=== PATIENT | female | born 1980 | race Two or more races ===

== ENCOUNTER → 2020-11-09 | Outpatient (CLI) | payer BC ==
[~2020-11-09] MED LIST: ACET325T14 PO; LISI-170 PO; MULT-658 PO; norethindrone PO
[2020-11-09 16:38] LABS: ALANINE AMINOTRANSFERASE 34 U/L (12-78); ALBUMIN 3.8 g/dL (3.4-5.0); ANION GAP 7 mmol/L (5-15); CALCIUM 8.9 mg/dL (8.5-10.1); CHLORIDE 105 mmol/L (98-107)
[2020-11-09 16:40] LABS: ALKALINE PHOSPHATASE 77 U/L (45-117); BILIRUBIN,TOTAL 0.3 mg/dL (0.2-1.0); CREATININE 0.72 mg/dL (0.55-1.02); TOTAL PROTEIN 7.7 g/dL (6.4-8.2)
== END | disposition home or self-care (01) ==
LOC: STAR 15:20
PROVIDERS: ATTEND Obstetrics & Gynecology
DX: Z01.812 Encounter for preprocedural laboratory examination (principal); R10.30 Lower abdominal pain, unspecified; D21.9 Benign neoplasm of connective and other soft tissue, unspecified; Z20.822 Contact with and (suspected) exposure to COVID-19
CPT/HCPCS: 36415; 80053; U0003; U0005

== ENCOUNTER 2020-11-13 05:29 | Day surgery (SDC) | payer BC, OTHER ==
[~2020-11-13] VITALS: Ht 154.9 cm; Wt 88.0 kg
[2020-11-13] MEDS ORDERED: CHLORHEXIDINE 15 ML UDC PO ONE (06:15)
[2020-11-13 06:17] VITALS: BP 106/76
[2020-11-13] MEDS ORDERED: LIDOCAINE-MPF 1%, 2ML INFIL ONE (06:30)
[2020-11-13] MEDS ORDERED: LACTATED RINGERS 1,000 ML IV SCH (06:30)
[2020-11-13 06:43] LABS: HCG UR SG 1.022 (1.003-1.030)
[2020-11-13] MEDS ORDERED: FENTANYL PF 250 MCG/5ML ONE (06:58)
[2020-11-13] MEDS ORDERED: MIDAZOLAM 1 MG/ML, 2ML ONE (06:58)
[2020-11-13] MEDS ORDERED: FLUORESCEIN SODIUM 500 MG/5 ML ONE (07:03)
[2020-11-13] MEDS ORDERED: BUPIVACAINE/PF 0.25% ONE (07:03)
[2020-11-13] MEDS ORDERED: EPINEPHRINE 1 MG/ML, 1ML ONE (07:03)
[2020-11-13] MEDS ORDERED: CEFAZOLIN 1,000 MG ONE ×2 (07:27)
[2020-11-13] MEDS ORDERED: ACETAMINOPHEN 325 MG TABLET PO PRN (07:30)
[2020-11-13] MEDS ORDERED: LABETALOL 5MG/ML, 20ML IV PRN (07:30)
[2020-11-13] MEDS ORDERED: PROMETHAZINE 25 MG/ML, 1ML IVPush PRN (07:30)
[2020-11-13] MEDS ORDERED: HYDROmorphone 1 MG/ML, 1ML INJ IVPush PRN (07:30)
[2020-11-13] MEDS ORDERED: OXYcodone 5 MG/5 ML ORAL.SOL UDC PO PRN (07:30)
[2020-11-13] MEDS ORDERED: hydrALAzine 20 MG/ML, 1ML IV PRN (07:30)
[2020-11-13] MEDS ORDERED: MEPERIDINE/PF 25MG/0.5ML IVPush PRN (07:30)
[2020-11-13] MEDS ORDERED: ONDANSETRON 2MG/ML, 2ML IVPush PRN (07:30)
[2020-11-13] MEDS ORDERED: DEXAMETHASONE 4 MG/ML, 1ML ONE (07:36)
[2020-11-13] MEDS ORDERED: ROCURONIUM 10MG/ML,5ML ONE ×2 (07:51→09:06)
[2020-11-13] MEDS ORDERED: PROPOFOL 10 MG/ML, 20ML ONE (07:51)
[2020-11-13] MEDS ORDERED: EPHEDRINE 50 MG/ML, 1ML ONE (07:51)
[2020-11-13] MEDS ORDERED: BUPIVACAINE/PF-EPI 0.25% 1:200K INFIL ONE (08:25)
[2020-11-13] MEDS ORDERED: ONDANSETRON 2MG/ML, 2ML ONE (09:02)
[2020-11-13] MEDS ORDERED: KETOROLAC 30 MG/1 ML ONE ×2 (09:02→14:31)
[2020-11-13] MEDS ORDERED: FENTANYL PF 100 MCG/2ML ONE ×2 (10:32→11:08)
[2020-11-13] MEDS ORDERED: ACETAMINOPHEN 650 MG/20.3 ML UDC ONE (11:08)
[2020-11-13] MEDS ORDERED: OXYcodone 5 MG/5 ML ORAL.SOL UDC ONE (11:09)
[2020-11-13] MEDS: FENTANYL PF 100 MCG/2ML IV PRN ×3 (11:11→11:50)
[2020-11-13] MEDS ORDERED: OXYC1TAB14 PO (11:26)
[2020-11-13] MEDS ORDERED: IBUP-1223 PO (11:26)
[2020-11-13] MEDS ORDERED: DOCU-131 PO (11:26)
[2020-11-13] MEDS ORDERED: KETOROLAC 30 MG/1 ML IVPush PRN (14:30)
== END 2020-11-13 17:25 | disposition home or self-care (01) ==
LOC: OUT 05:29
PROVIDERS: ATTEND Obstetrics & Gynecology
DX: N92.0 Excessive and frequent menstruation with regular cycle (principal); N94.6 Dysmenorrhea, unspecified; D25.1 Intramural leiomyoma of uterus; N80.0 Endometriosis of uterus; N87.0 Mild cervical dysplasia; N72 Inflammatory disease of cervix uteri; I10 Essential (primary) hypertension; Z79.899 Other long term (current) drug therapy; Z83.3 Family history of diabetes mellitus; Z80.9 Family history of malignant neoplasm, unspecified
CPT/HCPCS: 58552; 81025; 88307; J0171; J0690; J1100; J1885; J2250; J2405; J2704; J3010; J7120; S2900

== ENCOUNTER 2020-11-19 15:13 | Inpatient (IN) | payer BC ==
[~2020-11-19] VITALS: Ht 154.9 cm; Wt 89.2 kg
[~2020-11-19 15:13] MED LIST changes: +DOCU-131 PO; +IBUP-1223 PO; +OXYC1TAB14 PO
[2020-11-19] MEDS ORDERED: SODIUM CHLORIDE FLUSH 10ML SYR IVF ONE (16:00)
[2020-11-19 16:06] LABS: BASOPHILS % (AUTO) 0 % (0-1); EOSINOPHILS % (AUTO) 0 % (1-7); LYMPHOCYTES % (AUTO) 8 % (22-44); MEAN CORPUSCULAR HEMOGLOBIN 29.1 pg (27.0-34.8); MEAN CORPUSCULAR HGB CONC 33.7 g/dL (32.4-35.8); MEAN PLATELET VOLUME 8.4 fL (7.4-10.4); MONOCYTES % (AUTO) 7 % (2-9); NEUTROPHILS % (AUTO) 84 % (42-75); PLATELET COUNT 310 x10^3/uL (130-400); RED BLOOD COUNT 4.37 x10^6/uL (3.82-5.3); RED CELL DISTRIBUTION WIDTH 14.2 % (9.6-15.2)
[2020-11-19 16:14] LABS: ALANINE AMINOTRANSFERASE 33 U/L (12-78); ALBUMIN 3.6 g/dL (3.4-5.0); ANION GAP 7 mmol/L (5-15); CALCIUM 8.5 mg/dL (8.5-10.1); CHLORIDE 101 mmol/L (98-107); CREATININE 0.83 mg/dL (0.55-1.02)
[2020-11-19 16:18] LABS: ALKALINE PHOSPHATASE 71 U/L (45-117); BILIRUBIN,TOTAL 0.8 mg/dL (0.2-1.0); TOTAL PROTEIN 7.7 g/dL (6.4-8.2)
--- NOTE | 2020-11-19 17:08 | NUR ---
DATA EXAMINATION CLERK: PT TO ROOM FROM LOBBY VIA W/C
--- NOTE | 2020-11-19 17:15 | NUR ---
PT TO ROOM, CHANGED INTO GOWN. MONITORS IN PLACE. CALL LIGHT WITHIN REACH. FAMILY AT BS
[2020-11-19] MEDS ORDERED: MORPHINE SULFATE 4 MG/ML, 1ML ONE ×2 (17:47→19:13)
[2020-11-19] MEDS ORDERED: ONDANSETRON 2MG/ML, 2ML ONE (17:47)
[2020-11-19] MEDS: MORPHINE SULFATE 4 MG/ML, 1ML IVPush PRN ×2 (17:58→19:33)
--- NOTE | 2020-11-19 17:58 | NUR ---
pt to ct
[2020-11-19] MEDS ORDERED: SODIUM CHLORIDE 0.9% 1,000 ML IV ONE (18:00)
[2020-11-19] MEDS ORDERED: ONDANSETRON 2MG/ML, 2ML IVPush ONE (18:00)
[2020-11-19] MEDS ORDERED: OMNIPAQUE 350 MG/ML, 100ML BOTTLE ONE (18:13)
[2020-11-19 18:22] LABS: MICROSCOPIC AUTO
[2020-11-19] MEDS ORDERED: PIPERACILLIN/TAZO 3.375 GM in DEXTROSE 5% 50 ML IVPB ONE (18:30)
--- NOTE | 2020-11-19 19:00 | NUR ---
REPORT FROM MICHELLE RN
--- NOTE | 2020-11-19 19:12 | NUR ---
PER DR QUEZADA, NO BLOOD CULTURES BEFORE ABX
--- NOTE | 2020-11-19 19:45 | NUR ---
RECIEVED REPORT FROM LILO VELÁZQUEZ. TRANSFER OF CARE.
--- NOTE | 2020-11-19 20:05 | NUR ---
Patient is resting comfortably in bed. Bed in lowest, rails engaged, call light on lap. Vital Signs within normal limits. LISBETH. NADJeniffer. LAB TECGH AT BEDSIDE. AT BEDSIDE. PERRYTM
--- NOTE | 2020-11-19 21:00 | NUR ---
late entry due to pt care. PT GIVEN BOTTLE OF WATER. EDUACTED PT THAT SHE IS NPO AFTER MIDNIGHT WHERE SHE CANNOT EAT OR DRINK ANYTHING. Addendum: 11/19/20 at 2136 by [email or web address] NADN. [place]
[2020-11-19] MEDS ORDERED: ACETAMINOPHEN 325 MG TABLET PO PRN (21:30)
[2020-11-19] MEDS ORDERED: ONDANSETRON 2MG/ML, 2ML IVPush PRN (21:30)
[2020-11-19] MEDS ORDERED: LABETALOL 5MG/ML, 20ML IVPush PRN (21:30)
[2020-11-19] MEDS ORDERED: OXYcodone IR 5MG TABLET PO PRN (21:30)
[2020-11-19] MEDS ORDERED: POLYETHYLENE GLYCOL 17 GM PACKET PO PRN (21:30)
--- NOTE | 2020-11-19 22:28 | NUR ---
LATE ENTRY. GAVE REPORT TO LAURA VELÁZQUEZ
[2020-11-19] MEDS ORDERED: LACTATED RINGERS 1,000 ML IV ONE (23:00)
[2020-11-19 23:07] VITALS: BP 98/67
[2020-11-20 00:46] VITALS: BP 98/64
[2020-11-20] MEDS: morphine SULFATE 10 MG/ML, 1ML IVPush PRN ×2 (01:05→06:20)
[2020-11-20] MEDS: PIPERACILLIN/TAZO 3.375 GM in DEXTROSE 5% 50 ML IV SCH ×4 (01:13→22:23)
[2020-11-20 05:42] LABS: ANION GAP 6 mmol/L (5-15); CALCIUM 7.7 mg/dL (8.5-10.1); CHLORIDE 107 mmol/L (98-107); CREATININE 0.79 mg/dL (0.55-1.02)
[2020-11-20 05:47] LABS: BASOPHILS % (AUTO) 0 % (0-1); EOSINOPHILS % (AUTO) 0 % (1-7); LYMPHOCYTES % (AUTO) 10 % (22-44); MEAN CORPUSCULAR HEMOGLOBIN 29.6 pg (27.0-34.8); MEAN CORPUSCULAR HGB CONC 34.2 g/dL (32.4-35.8); MEAN PLATELET VOLUME 8.7 fL (7.4-10.4); MONOCYTES % (AUTO) 8 % (2-9); NEUTROPHILS % (AUTO) 82 % (42-75); PLATELET COUNT 228 x10^3/uL (130-400); RED CELL DISTRIBUTION WIDTH 14.1 % (9.6-15.2)
[2020-11-20 07:05] VITALS: BP 104/72
[2020-11-20] MEDS: LACTATED RINGERS 1,000 ML IV SCH ×2 (10:00→20:53)
[2020-11-20] MEDS ORDERED: DOCUSATE 100 MG CAPSULE ONE (11:19)
[2020-11-20] MEDS: DOCUSATE 100 MG CAPSULE PO SCH ×2 (11:24→20:52)
[2020-11-20] MEDS ORDERED: GOLYTELY 4,000ML ORAL.SOL PO ONE (12:30)
[2020-11-20] MEDS ORDERED: MORPHINE SULFATE 4 MG/ML, 1ML IV PRN (13:00)
[2020-11-20 13:26] VITALS: BP 115/77
[2020-11-20] MEDS: KETOROLAC 30 MG/1 ML IVPush SCH ×2 (13:29→20:52)
[2020-11-20] MEDS: METOCLOPRAMIDE 5 MG/ML, 2ML IVPush SCH ×2 (13:29→20:52)
[2020-11-20 19:56] VITALS: BP 114/78
[2020-11-21 01:10] VITALS: BP 107/71
[2020-11-21] MEDS: METOCLOPRAMIDE 5 MG/ML, 2ML IVPush SCH ×2 (02:10→08:29)
[2020-11-21] MEDS: KETOROLAC 30 MG/1 ML IVPush SCH ×4 (02:10→20:56)
[2020-11-21] MEDS: PIPERACILLIN/TAZO 3.375 GM in DEXTROSE 5% 50 ML IV SCH ×4 (04:25→22:32)
[2020-11-21 05:48] LABS: BASOPHILS % (AUTO) 0 % (0-1); EOSINOPHILS % (AUTO) 1 % (1-7); LYMPHOCYTES % (AUTO) 12 % (22-44); MEAN CORPUSCULAR HEMOGLOBIN 29.7 pg (27.0-34.8); MEAN CORPUSCULAR HGB CONC 34.5 g/dL (32.4-35.8); MEAN PLATELET VOLUME 8.2 fL (7.4-10.4); MONOCYTES % (AUTO) 7 % (2-9); NEUTROPHILS % (AUTO) 81 % (42-75); PLATELET COUNT 238 x10^3/uL (130-400); RED BLOOD COUNT 3.49 x10^6/uL (3.82-5.3); RED CELL DISTRIBUTION WIDTH 13.8 % (9.6-15.2)
[2020-11-21 06:59] VITALS: BP 111/74
[2020-11-21] MEDS: DOCUSATE 100 MG CAPSULE PO SCH ×2 (08:29→20:56)
[2020-11-21] MEDS: LACTATED RINGERS 1,000 ML IV SCH (08:30)
[2020-11-21] MEDS ORDERED: VANCOMYCIN PER PHARMACY MC PRN (11:00)
[2020-11-21] MEDS ORDERED: VANCOMYCIN 1,600 MG in SODIUM CHLORIDE 0.9% 250 ML IV ONE (11:30)
[2020-11-21] MEDS ORDERED: PHARMACOKINETIC CONSULTATION MC ONE (11:30)
[2020-11-21] MEDS ORDERED: PHARMACOKINETIC MONITORING MC PRN (11:30)
[2020-11-21 12:59] VITALS: BP 101/69
[2020-11-21 20:54] VITALS: BP 109/75
[2020-11-22] MEDS: VANCOMYCIN 1,300 MG in SODIUM CHLORIDE 0.9% 250 ML IV SCH ×2 (01:30→14:14)
[2020-11-22 01:45] VITALS: BP 103/68
[2020-11-22] MEDS: KETOROLAC 30 MG/1 ML IVPush SCH ×3 (02:57→15:16)
[2020-11-22] MEDS: PIPERACILLIN/TAZO 3.375 GM in DEXTROSE 5% 50 ML IV SCH ×2 (04:06→11:09)
[2020-11-22] MEDS: DOCUSATE 100 MG CAPSULE PO SCH (07:29)
[2020-11-22 07:38] VITALS: BP 115/80
[2020-11-22 13:41] VITALS: BP 115/82
[2020-11-22] MEDS ORDERED: AMOX1TAB12 PO (15:11)
[2020-11-22] MEDS ORDERED: SENN-204 PO (15:11)
== END 2020-11-22 16:37 | disposition home or self-care (01) | DRG 862 ==
LOC: ED 20:18 → EDIP 20:40 → 3N 22:22
PROVIDERS: ADMIT Family Medicine; ATTEND Family Medicine
DX: T81.44XA Sepsis following a procedure, initial encounter (principal); K65.1 Peritoneal abscess; N39.0 Urinary tract infection, site not specified; E87.1 Hypo-osmolality and hyponatremia; T81.49XA Infection following a procedure, other surgical site, initial encounter; E66.9 Obesity, unspecified; D25.9 Leiomyoma of uterus, unspecified; E86.1 Hypovolemia; I10 Essential (primary) hypertension; Y83.8 Other surgical procedures as the cause of abnormal reaction of the patient, or of later complication, without mention of misadventure at the time of the procedure; K59.03 Drug induced constipation; N73.9 Female pelvic inflammatory disease, unspecified; Z80.0 Family history of malignant neoplasm of digestive organs; Z83.3 Family history of diabetes mellitus; Z90.710 Acquired absence of both cervix and uterus; Z68.36 Body mass index [BMI] 36.0-36.9, adult; Z90.722 Acquired absence of ovaries, bilateral; Y92.89 Other specified places as the place of occurrence of the external cause
CPT/HCPCS: 36415; 74177; 80048; 80053; 81001; 83605; 84703; 85025; 87040; 87086; 96374; 96375; 96376; 99285; G0378; J1885; J2405; J2543; J3370; Q9967; J2270; J2765; J7030; J7050; J7120

== ENCOUNTER 2020-12-05 08:21 | Emergency (ER) | payer BC ==
[~2020-12-05] VITALS: Ht 154.9 cm; Wt 98.0 kg
[~2020-12-05 08:21] MED LIST changes: +AMOX1TAB12 PO; +SENN-204 PO
--- NOTE | 2020-12-05 09:14 | NUR ---
INITNAL CONTACT W/ PT: NAUSEA SINCE THIS AM SURG ONE WEEK AGO WITH HISTORECTOMY HAD COMPLICATION OF PELVIC ABCESS WAS ADMITTED LAST WEEK WELL. PT REPORTS EXTREME DIZZINESS AND NAUSEA. PT ATTACHED TO MONITORS. VSS. [place]. DR. CHICAS EVALUTED.
[2020-12-05 09:30] LABS: MICROSCOPIC AUTO
[2020-12-05] MEDS ORDERED: SODIUM CHLORIDE FLUSH 10ML SYR IVF ONE (09:30)
[2020-12-05] MEDS ORDERED: SODIUM CHLORIDE 0.9% 1,000ML IVBOLUS ONE (09:30)
[2020-12-05] MEDS ORDERED: PROMETHAZINE 25 MG/ML, 1ML IM ONE (09:30)
[2020-12-05] MEDS ORDERED: PROMETHAZINE 25 MG/ML, 1ML ONE (09:34)
[2020-12-05 09:38] LABS: BASOPHILS % (AUTO) 1 % (0-1); EOSINOPHILS % (AUTO) 2 % (1-7); LYMPHOCYTES % (AUTO) 21 % (22-44); MEAN CORPUSCULAR HGB CONC 34.3 g/dL (32.4-35.8); MEAN PLATELET VOLUME 8.6 fL (7.4-10.4); MONOCYTES % (AUTO) 9 % (2-9); NEUTROPHILS % (AUTO) 68 % (42-75); PLATELET COUNT 381 x10^3/uL (130-400); RED CELL DISTRIBUTION WIDTH 13.9 % (9.6-15.2)
[2020-12-05 09:41] LABS: ALANINE AMINOTRANSFERASE 29 U/L (12-78); ANION GAP 9 mmol/L (5-15); CALCIUM 9.5 mg/dL (8.5-10.1); CHLORIDE 106 mmol/L (98-107); CREATININE 1.27 mg/dL (0.55-1.02)
[2020-12-05 09:43] LABS: ALKALINE PHOSPHATASE 97 U/L (45-117); BILIRUBIN,TOTAL 0.3 mg/dL (0.2-1.0); TOTAL PROTEIN 8.9 g/dL (6.4-8.2)
[2020-12-05 10:33] VITALS: BP 113/86
== END 2020-12-05 10:37 | disposition home or self-care (01) ==
LOC: ED 10:30
DX: R11.2 Nausea with vomiting, unspecified (principal); N28.9 Disorder of kidney and ureter, unspecified; R42 Dizziness and giddiness; I10 Essential (primary) hypertension
CPT/HCPCS: 36415; 80053; 81001; 83690; 85025; 87077; 87086; 96372; 99283; J2550; J7030; 87186